=== PATIENT | male | born 1995 | race Caucasian/White ===

== ENCOUNTER 2017-03-15 17:34 | Emergency (ER) | payer OTHER ==
--- NOTE | 2017-03-15 17:50 | EDPHY ---
H & P Time Seen by Provider: 03/15/17 17:44 HPI/ROS: HPI Left little finger injury. 21-year-old male by private vehicle. He is right-hand dominant. He was playing basketball. He jammed his left little finger. He complains of isolated pain and deformity to the left 5th finger only. No other injury or complaint. ROS: Constitutional: No fever, no chills. No weakness. Musculoskeletal: No back pain. No neck pain. No myalgias or arthralgias. Skin: No rashes. Neurological: No headache. No focal weakness or altered sensation. Past medical history: No significant past medical history. Social history: Nonsmoker. Here by himself. Denies alcohol. Physical Exam: General Appearance: Alert, no distress. This patient is responding to questions appropriately and in full sentences. This patient appears well- hydrated and well-nourished. Eyes: Pupils equal and round no pallor or injection. No lid edema, erythema or injection. Left hand/little finger: Significant for a deformity noted at the PIP joint of the little finger indicating likely dislocation subluxation. Skin is intact. Capillary refill in the little finger is normal. Sensation is normal. Left hand is otherwise neurovascularly intact. No tenderness on palpation on the other bony aspects of the hand and wrist. The left wrist and left elbow range without any pain or impingement. Neurological: Motor sensory function is grossly intact. Cranial nerves are normal. Gait is normal. Skin: Warm and dry, no rashes. Musculoskeletal: Neck is supple and nontender. Extremities are symmetrical. All joints range without pain or impingement. Psychiatric: No agitation. No depression. Database: EKG: Imaging: Left little finger x-ray series: Significant for a fracture dislocation left little finger, PIP joint with dorsal ulnar deviation. Interpreted by me. Procedures: Procedure: Dislocation reduction. The left little finger PIP joint was reduced in the usual fashion without complications. Digital block performed for anesthesia was 0.5% bupivacaine without epinephrine. Post reduction the patient's neurovascular exam is normal. Post reduction x-ray demonstrates reduction of the joint to the anatomic position. The procedure was performed by myself. Procedure: Splint placement. A volar aluminum finger splint applied to left hand 5th digit splint was applied. After application of the splint I returned and re-examined the patient. The splint was adequately immobilizing the joint and distal to the splint the patient's circulation and sensation was intact. Emergency department course: After reduction and splinting as above, I discussed follow-up with orthopedic hand specialist for re-evaluation and further management. Return to emergency department precautions reviewed. All of the patient's questions were answered. He was discharged in good condition. Differential Diagnosis: The differential diagnosis on this patient includes but is not limited to left finger fracture, subluxation, dislocation. This represents a partial list of diagnoses considered. These considerations are based on history, physical exam , past history, reassessment and diagnostic testing. Constitutional: Initial Vital Signs Temperature (C) 36.7 C 03/15/17 17:45 Heart Rate 122 H 03/15/17 17:45 Respiratory Rate 18 03/15/17 17:45 Blood Pressure 147/92 H 03/15/17 17:45 O2 Sat (%) 99 03/15/17 17:45 O2 Delivery Mode Room Air Allergies/Adverse Reactions: No Known Allergies Allergy (Unverified 03/15/17 17:45) Home Medications: Medication Instructions Recorded NK [No Known Home Meds] 03/15/17 Medical Decision Making - Diagnostics Imaging Results: Imaging Impressions Finger X-Ray 03/15/17 17:46 Impression: Fracture dislocation the PIP joint Departure - Departure Disposition: Home, Routine, Self-Care Clinical Impression: Injury of left little finger, Closed dislocation of left little finger, Closed fracture of phalanx of left hand Condition: Good Instructions: Finger Fracture (ED), Finger Dislocation (ED) Additional Instructions: Read and follow provided instructions. Follow-up with orthopedic hand specialist, Dr. Debby Rajan, early next week on Friday or Friday for re-evaluation and further management. Call her office Friday for appointment time. Explain this is for an emergency department follow-up for your finger injury. Ibuprofen dosin mg every 6 hours with meals for the next 3 days only. Return to the emergency department for worsening pain, discoloration, swelling or other serious concerns. Referrals: Debby Rajan MD [Medical Doctor] - As per Instructions
[2017-03-15 17:51] VITALS: TEMP 98.1
[2017-03-15 19:09] VITALS: BP 127/78; PULSE 124; RESP 16; O2SAT 98
== END 2017-03-15 19:12 | disposition home or self-care (01) ==
LOC: CED 17:34
PROC: 0RSXX5Z Reposition Left Finger Phalangeal Joint with External Fixation Device, External Approach (ICD-10-PCS; principal; 2017-03-15)
DX: S63.287A Dislocation of proximal interphalangeal joint of left little finger, initial encounter (principal); S62.617A Displaced fracture of proximal phalanx of left little finger, initial encounter for closed fracture; W23.0XXA Caught, crushed, jammed, or pinched between moving objects, initial encounter; Y99.8 Other external cause status; Y93.67 Activity, basketball
CPT/HCPCS: 73140-PO